=== PATIENT | male | born 1965 | race Caucasian/White ===

== ENCOUNTER 2022-07-07 07:31 | Day surgery (SDC) | payer BC ==
[2022-07-05 12:02] VITALS: BMI 25.1
[2022-07-07] MEDS ORDERED: PROPOFOL 20 ML ONE (09:15)
[2022-07-07] MEDS ORDERED: PROPOFOL 40 ML ONE (09:15)
== END 2022-07-07 10:23 | disposition home or self-care (01) ==
LOC: CSHSDC 07:31
PROVIDERS: ATTEND Surgery
PROC: 0DJD8ZZ Inspection of Lower Intestinal Tract, Via Natural or Artificial Opening Endoscopic (ICD-10-PCS; principal; 2022-07-07)
DX: Z12.11 Encounter for screening for malignant neoplasm of colon (principal); K57.30 Diverticulosis of large intestine without perforation or abscess without bleeding; E78.00 Pure hypercholesterolemia, unspecified; I10 Essential (primary) hypertension; E03.9 Hypothyroidism, unspecified; Z79.899 Other long term (current) drug therapy; Z88.8 Allergy status to other drugs, medicaments and biological substances
CPT/HCPCS: J2704